=== PATIENT | female | born 1960 | race Caucasian/White ===

== ENCOUNTER 2016-07-13 02:56 | Inpatient (IN) | payer OTHER ==
[~2016-07-13] VITALS: Ht 160 cm; Wt 94.3 kg
[~2016-07-13 02:56] MED LIST: AZOR 10-20 MG1 EACH PO; NASONEX17 GM NAS; NATURE-THROID32.5 MG PO; RESTASIS1 EACH OPH
--- NOTE | 2016-07-13 13:51 | Admission Core Measures ---
Admission Meds I reviewed the following Meds: Current Medications Sig/Shavonne Start time Last Medication Dose Stop Time Status Admin Clindamycin 600 MG ONCE 07/13 NR (Cleocin) 07/13 2358 Dextrose/Water 50 ML (D5W) Dexamethasone 10 MG ONCE 07/13 NR (Decadron) 07/13 2358 Gentamicin Sulfate 80 MG ONCE 07/13 NR (Gentamicin) 07/13 2358 Dextrose/Water 100 ML (D5W) Heparin Sodium 5,000 UNIT ONCE 07/13 NR (Porcine) 07/13 2358 Acute Coronary Syndrome Inclusion Criteria ACS Diagnosis No Inpatient Core Measures LDL Reminder: If No, please order W/I first 24hr of stay Congestive Heart Failure Inclusion Criteria CHF Diagnosis No Cerebrovascular accident Inclusion Criteria CVA/TIA Diagnosis No Inpatient Core Measures Bedside Swallow Eval Reminder: If BSE failed, place ST order Antithrombotic Reminder: Order Antithrombotic Medication by end of day 2 Antithrombotic Reminder: Document Reason Antithrombotic Not ordered by end of day 2 AFIB/Flutter Reminder: If Present, add to problem list AFIB/Flutter Reminder: Order Anticoag Medication for pts with AFIB/Flutter Atherosclerosis Reminder: If Present, add to problem list LDL Reminder: If No, please order W/I first 24hr of stay PT Order Reminder: If No, please order Venous thromboembolism Inpatient Core Measures VTE Risk Factors: Age > 40, Obesity, Surgery VTE Prophylaxis Ordered Inpt Mech & Pharm No Mech VTE prophylaxis d/t No contraindications No VTE Pharm Prophylaxis d/t No contraindications Inclusion Criteria - Per Current guidelines, there needs to be overlap - treatment for the first 5 days of Warfarin therapy. - Parenteral Anticoagulation (IV or SC) needs to be - given along with Warfarin therapy. VTE Diagnosis No VTE Type NONE VTE Confirmed by (Test) NONE Problem List As ranked by this Provider includes Assessment & Plan 1. Morbid obesity 2. Hypothyroid 3. Hypertension 4. S/P laparoscopic sleeve gastrectomy HOME MEDS Home Med List Amlodipine Bes/Olmesartan Med (Jl 10-20 MG Tablet) 10 MG-20 MG TABLET 1 TAB PO QPM BP (Reported) Cyclosporine (Restasis) 0.05 % DROPERETTE 1 GTT OPH AD EYE(S) (Reported) Mometasone Furoate (Nasonex) 50 MCG SPRAY.PUMP 1-2 SPRAY CRISTI AD PRN ALLERGIES (Reported) Thyroid,Pork (Nature-Throid) (Unknown Strength) TABLET 2.25 GR PO DAILY THYROID (Reported)
--- NOTE | 2016-07-13 14:04 | Patient Discharge Instructions ---
Discharge Instructions General Discharge Information You were seen/treated for: morbid obesity, hx hypertension You had these procedures: laparoscopic sleeve gastrectomy (07/13/16) Watch for these problems: fever>101.3, increased pain, redness/swelling/drainage, shortness of breath, chest pain, dizziness No bath, but you may shower: Yes Other wound care: ok to shower. remove outer dressings, but leave white steri strips in place. expect drainage from the drain site, which you may place dry guaze over daily until it's no longer draining. Diet Continue normal diet: No Recommended Diet: Bariatric Additional DIET Information: weekly bariatric stage diet advancements as directed, as tolerated Activity Full Activity/No Limits: No Activity Self Limited: Yes Pounds, do NOT lift more than: 10 Other activity limits: no heavy lifting. no strenuous activity. ambulate frequently. Acute Coronary Syndrome Inclusion Criteria At DC or during hospital stay patient has or had the following: ACS DIAGNOSIS No Discharge Core Measures Meds if any: Prescribed or Continued at Discharge Meds if any: NOT Prescribed or Continued at Discharge Congestive Heart Failure Inclusion Criteria At DC or during hospital stay patient has or had the following: CHF DIAGNOSIS No Discharge Core Measures Meds if any: Prescribed or Continued at Discharge Meds if any: NOT Prescribed or Continued at Discharge Cerebrovascular accident Inclusion Criteria At DC or during hospital stay patient has or had the following: CVA/TIA Diagnosis No Discharge Core Measures Meds if any: Prescribed or Continued at Discharge Meds if any: NOT Prescribed or Continued at Discharge Venous thromboembolism Inclusion Criteria VTE Diagnosis No VTE Type NONE VTE Confirmed by (Test) NONE Discharge Core Measures - Per Current guidelines, there needs to be overlap - treatment for the first 5 days of Warfarin therapy. - If discharged on Warfarin prior to 5 days of - overlap therapy, the patient will need to be - assessed for post discharge needs including - *Post discharge parental anticoagulation - *Warfarin and/or parental anticoagulation education - *Follow up date to check INR post discharge At least 5 days overlap therapy as Inpatient No Meds if any: Prescribed or Continued at Discharge Note: Overlap Therapy is Warfarin and Anticoagulant Meds if any: NOT Prescribed or Continued at Discharge
[2016-07-13] MEDS ORDERED: PROTONIX40 M3 PO (14:06)
[2016-07-13] MEDS ORDERED: HYCET 7.5 MG-3473 ML PO (14:07)
--- NOTE | 2016-07-13 14:13 | Surg Short-stay <48hrs Dis Sum ---
Visit Information Visit Dates Admission Date: 07/13/16 Discharge Date: 07/15/16 Surgical Short Stay DC Summary Admission Diagnosis: morbid obesity, hx hypertension Final Diagnosis: morbid obesity, hx hypertension s/p lap sleeve gastrectomy (07/13/16) allergic reaction ?dilaudid Procedure(s): Laparoscopic sleeve gastrectomy (07/13/16) Summary/Significant Findings: Electively scheduled laparoscopic sleeve gastrectomy (07/13/16) by Dr.Neil Vidal. Upper gi study done post-op day#1 to rule out leak. Stage 1 bariatric diet started after upper gi study reviewed. She had an allergic reaction POD#1 evening, for which she was transferred to telemetry for monitoring after receiving epinephrine. Although she had multiple doses of dilaudid prior to her developing allergic symptoms (itching, rash, mild dyspnea), it was felt this medication was the most likely culprit, and therefore it was stopped. She was monitored on telemetry overnight, and her symptomst resolved after recieving epinephrine and solumedrol. She was discharged with hycet elixir, since she reports she has taken vicodin in the past without a problem. The PATRICIA drain removed prior to discharge home. Condition at Discharge: stable Discharge Disposition: home or self care Discharge instructions provided to patient/family: Yes Post discharge follow-up plan: follow up with Dr.Neil Vidal within one week continue weekly bariatric stage diet advancements as directed, as tolerated
--- NOTE | 2016-07-13 17:39 | Operative Report ---
Operative/Inv Procedure Report Surgery Date: 07/13/16 Name of Procedure: Laparoscopic Sleeve gastrectomy Pre-Operative Diagnosis: Severe morbid obesity BMI of 38 hypertension and osteoarthritis Post-Operative Diagnosis: Severe morbid obesity EOMI 38 hypertension and osteoarthritis Estimated Blood Loss: less than 50ml Surgeon/Casino Controller: Surgeon is Maurice Chambers in first Asst. Daryl Wick MD,MAURICE Couch Anesthesia: general endotracheal tube Implants: No implants Drains: A PATRICIA drain placed over the staple line and brought at the right upper quadrant Specimens: The stomach Complications: No complications Condition: Stable Operative Indication: This is a 36-year-old female with hypertension osteoarthritis and severe morbid obesity under one a workup and evaluation for sleeve gastrectomy IV now explained the risks and potential complications of the procedure including bleeding infection deep venous thrombosis and pulmonary embolism injury to the esophagus stomach and small intestine among other potential complications Operative/Procedure Note Note: The patient was brought into the operating room and placed on the operating room table in the supine position. The administered duration and prepping and draping the patient in the sterile fashion and incision was made below the umbilicus vertically and down to the fascia. There was a small umbilical hernia which was widened with the use of the electrocautery. A 15 mm blunt port was inserted into the abdominal cavity. At this time there were no adhesions so 5 mm port was placed in the right upper quadrant one in the left upper quadrant a 12 mm port in the right midabdomen and a 12 mm port care home between the xiphoid and the umbilicus. A 5 mm incision was made subxiphoid Pj liver retractor was inserted and the liver was elevated. The gastrocolic ligament was taken down with the LigaSure device and extending all the way up to the angle of His along the left crura of the diaphragm. The NG tube was removed. 38 Bahamian bougie was inserted into the stomach. Once stapling with a 60 cm black cartridge with the seam guard was used. A second black cartridge with no seam guard and then 3 purple cartridges with no seam guard were then used to staple the stomach along the bougie completely the stomach. Stomach was oversewn and inverted with a 20V lock suture. After this performed 2 passes of the suture were removed and then there was a little bit of bleeding on the underside of the stomach which was sewn with a figure of 8 2-0 silk suture. Was placed in a laparoscopic bag and retrieved through the umbilicus. The count 4 x 4's was correct. PATRICIA drain was placed over the staple line and brought at the right upper quadrant. The ports removed under direct vision the gas removed from the abdomen and the Valsalva maneuver was performed. The fascia was closed with 3 interrupted 0 Vicryl sutures. JPs Luc sewn in with a 2-0 nylon. Skin was closed with 4-0 Monocryl. Steri-Strips as replaced the wound site a sterile dressing was placed on the wound. The patient out procedure was brought to recovery room in stable condition end of dictation o'clock M.D.
--- NOTE | 2016-07-13 18:19 | RADIOLOGY REPORT ---
EXAMINATION:\H\ \N\XR CHEST CLINICAL INFORMATION: Post operative hypoxia. COMPARISON: Chest x-ray 07/08/2016. TECHNIQUE: Single AP view of the chest was obtained. FINDINGS: The lungs are hypoinflated, but otherwise clear without focal airspace consolidation. No pleural effusions or pneumothoraces are identified. Cardiomediastinal contours are within normal limits. Soft tissues are unremarkable. No acute osseous abnormality is identified. IMPRESSION: Pulmonary hypoinflation. Otherwise, no acute pulmonary process.
[2016-07-13 19:00] VITALS: BP 110/68
--- NOTE | 2016-07-13 20:18 | PN- Bariatrics ---
Subjective Subjective: POC S/P LAP SLEEVE GASTRECTOMY SOB POST OP, CXR-UNREMARKABLE FOR ACTIVE DISEASE CURRENTLY DENIES CP, SOB, SOME MILD TRANSIENT NAUSEA Objective Vital Signs and I&Os Vital Signs Date Time Temp Pulse Resp B/P Pulse O2 O2 Flow FiO2 Ox Delivery Rate 07/13 1899 97.4 83 18 110/68 94 Nasal 2.0L Cannula 07/13 1899 94 Nasal 2.0L Cannula Physical Exam: CV: RRR LUNGS: CLEAR ABD: SOFT, DRSGS DRY HYPOACTIVE BS, NO GUARDING TO PALP EXT: WARM, DISTAL CMS INTACT Current Medications: Current Medications Sig/Shavonne Start time Last Medication Dose Route Stop Time Status Admin Clindamycin 600 MG ONCE 07/13 DC Dextrose/Water 50 ML IV 07/13 2358 Dexamethasone 10 MG ONCE 07/13 DC IV 07/13 235 Dextrose/Sodium 1,000 ML Q8H 07/13 1930 AC 07/13 Chloride IV 1947 Enoxaparin Sodium 40 MG DAILY 07/14 1000 AC SC Gentamicin Sulfate 80 MG ONCE 07/13 0000 DC Dextrose/Water 100 ML IV 07/13 2359 Heparin Sodium 5,000 UNIT Q8 07/13 2200 AC (Porcine) SC 07/13 220 Heparin Sodium 5,000 UNIT ONCE 07/13 0000 DC (Porcine) SC 07/13 2359 Hydromorphone HCl 1 MG Q4P PRN 07/13 193 AC IV Ketorolac 30 MG Q6P PRN 07/13 1930 AC Tromethamine IV Ondansetron HCl 4 MG Q6P PRN 07/13 1930 AC IV Pantoprazole Sodium 40 MG DAILY 07/14 1000 AC IV Simethicone 40 MG Q6P PRN 07/13 1930 AC PO Thyroid 2.25 GR DAILY 07/14 1000 AC PO Results Recent Imaging Studies: SERVICE DATE: 07/13/16 EXAM TYPE: RAD - XRY-CHEST XRAY, ONE VIEW ONLY EXAMINATION:\H\ \N\XR CHEST CLINICAL INFORMATION: Post operative hypoxia. COMPARISON: Chest x-ray 07/08/2016. TECHNIQUE: Single AP view of the chest was obtained. FINDINGS: The lungs are hypoinflated, but otherwise clear without focal airspace consolidation. No pleural effusions or pneumothoraces are identified. Cardiomediastinal contours are within normal limits. Soft tissues are unremarkable. No acute osseous abnormality is identified. IMPRESSION: Pulmonary hypoinflation. Otherwise, no acute pulmonary process. DICTATED BY: SANTOSH GUTHRIE MD DATE/TIME DICTATED:07/13/161814 ORNAMENTER:MEGGAN DATE/TIME TRANSCRIBED:07/13/161814 Assessment/Plan Assessment/Plan SURGICAL STABLE PLAN OOB/AMBULATE LOVENOX/HEP/ALPS FOR DVT PROPHYLAXIS NPO FRO UGI IN AM HOLD BP MEDS FOR NOW-WILL MONITOR Core Measures/Miscellaneous Venous Thromboembolism VTE Risk Factors: Age > 40, Obesity, Smoking VTE Contraindications: No Contraindications VTE Prophylaxis Ordered Inpt: Mech & Pharm VTE Diagnosis: No VTE Type: NONE VTE Confirmed by (Test): NONE Beta Carissa Is Beta Carissa a Home Med? No Antibiotics Is Patient on Antibiotics? Yes
[2016-07-14 00:44] VITALS: BP 126/70
--- NOTE | 2016-07-14 06:54 | PN- Bariatrics ---
Subjective Subjective: The patient seen this morning postoperatively day #1. She complaints of some mild left shoulder pain as well as celine-incisional pain which is under adequate control with current pain regiment. She denies any nausea and is eager to ambulate this morning. Objective Vital Signs and I&Os Vital Signs Date Time Temp Pulse Resp B/P Pulse O2 O2 Flow FiO2 Ox Delivery Rate 07/14 0044 98.9 97 20 126/70 92 Nasal 2.0L Cannula 07/13 1899 97.4 83 18 110/68 94 Nasal 2.0L Cannula 07/13 190 94 Nasal 2.0L Cannula Intake & Output 07/14 0807/14 0000 07/13 1600 07/13 0800 07/13 0000 07/12 1600 Intake Total 710 Output Total 1600 610 Balance -1600 100 Intake, IV 500 Intake, Oral 210 Output, 10 Drainage Output, Urine 1600 600 Patient 208 lb Weight Physical Exam: Gen.: Alert and obvious distress Skin: Warm and dry Abdomen: Soft, obese, nondistended, bowel sounds positive. Port sites are clean , dry, and intact without signs of infection. His PATRICIA 1 holding suction with serosanguineous drainage in the bulb. Extremities: Bilateral lower extremities warm without calf tenderness or significant edema. Assessment/Plan Assessment/Plan Assessment: 56-year-old female status post lap scopic sleeve gastrectomy postoperative day #1. The patient is progressing as expected, her pain is under adequate control, and she is without nausea. Plan: Decrease IV fluids Follow-up morning laboratory studies Upper GI this morning if it is okay the patient be restarted on stage I diet GI and DVT prophylaxis Out of bed ambulate Total respiratory care Keep PATRICIA is self suction and DC before discharge Core Measures/Miscellaneous Venous Thromboembolism VTE Risk Factors: Age > 40, Obesity, Smoking VTE Contraindications: No Contraindications VTE Prophylaxis Ordered Inpt: Mech & Pharm VTE Diagnosis: No VTE Type: NONE VTE Confirmed by (Test): NONE Beta Carissa Is Beta Carissa a Home Med? No Antibiotics Is Patient on Antibiotics? No
[2016-07-14 08:16] LABS: ABSOLUTE BASOPHIL COUNT 0 /CUMM (0.0-0.2); ABSOLUTE EOSINOPHIL COUNT 0 /CUMM (0.0-0.7); ABSOLUTE GRANULOCYTE CT 8.5 /CUMM (1.4-6.5); ABSOLUTE LYMPH COUNT 0.5 /CUMM (1.2-3.4); ABSOLUTE MONOCYTE COUNT 0.2 /CUMM (0.10-0.60); BASOPHIL % 0 % (0.0-2.0); EOSINOPHIL % 0 % (0-5); HEMATOCRIT 41.5 % (37-47); MEAN CORPUSCULAR HGB 28.9 PG (27.0-31.0); MEAN CORPUSCULAR HGB CONC 34.4 G/DL (33.0-37.0); MEAN CORPUSCULAR VOLUME 84.1 FL (81.0-99.0); MEAN PLATELET VOLUME 8.7 FL (7.4-10.4); PLATELET COUNT 292 /CUMM (130-400); RBC DISTRIBUTION WIDTH 13.9 % (11.5-14.5); RED BLOOD CELL CT 4.94 /CUMM (4.20-5.40); WHITE BLOOD CELL COUNT 9.2 /CUMM (4.8-10.8)
--- NOTE | 2016-07-14 08:50 | NUR ---
NURSING NOTE: PT LEFT FLOOR VIA STRETCHER WITH DISTRIBUTION FOR UPPER GI SERIES XRAY, PT AWAKE, A/OX3, ROOM AIR, IVF PER MD ORDER, NPO, TICKET TO RIDE COMPLETE, DENIES PAIN, AWAIT RETURN TO FLOOR.
[2016-07-14 08:54] VITALS: BP 124/72
--- NOTE | 2016-07-14 09:50 | RADIOLOGY REPORT ---
EXAMINATION: XR UPPER GI SERIES CLINICAL INFORMATION: 48-year-old female status post sleeve gastrectomy. COMPARISON: None. TECHNIQUE: Upper GI series performed with oral intake of 30 mL of Gastroview contrast material. Multiple spot fluoroscopy images of the upper abdomen were obtained. FLUOROSCOPY TIME: 35 seconds FINDINGS: There is a drainage catheter in the epigastric region. The stomach has the expected configuration after sleeve gastrectomy. No significant delay in passage of contrast material through the esophagus, into the stomach and proximal duodenum. The patient was moved into right and left decubitus positions, and there was no evidence of contrast leakage from the stomach. IMPRESSION: Status post sleeve gastrectomy. No evidence of gastric leakage of contrast.
[2016-07-14 10:09] LABS: GRANULOCYTE % 92.2 % (42.2-75.2)
[2016-07-14 15:55] VITALS: BP 102/68
--- NOTE | 2016-07-14 19:08 | Event Note ---
Event Note Event Note: I responded to Rapid Response called to [phone]. Subjective: Rapid response was called for the surgical patient who was apparently having an allergic reaction to Dilaudid injections. The patient had started having rash all over the body, with a subjective feeling of minimal difficulty breathing, associated with subjective feeling of thickening of her tongue. Rash was erythematous and pruritus and all over the body including face torso and extremities. Rash occurred after injection of Dilaudid. But she has received five doses of Dilaudid so far. Patient mentioned that she has had reactions to opoiates/Dilaudid on and off in the past, including a distress requiring intubation, epinephrine, Solu-Medrol, Benadryl in the emergency department as well. Objective: The patient was sitting by the side of the bed, her vital signs were blood pressure 180/84, heart rate 170 regular, respiratory rate 24, oxygen saturation 96% on room air, patient was alert oriented and cooperative and was complaining of symptoms mentioned above. She was able to speak in full sentences and give us the history about allergies as mentioned earlier. On examination, airway was patent, she did not have any wheezes/spasm upon auscultation over bilateral lung sawyer, there was no obvious swelling of lips or swelling of tongue or narrowing of the glottis. Rash was obvious wall over the body which seemed to be pruritus as well. Assessment and plan: 56-year-old female status post laparoscopic sleeve gastrectomy done earlier today, is having a severe allergic reaction to opioid medication given as an analgesic. After ABC was confirmed, the following interventions were ordered immediately: -IV Benadryl 50 mg stat -IM epinephrine 0.3 mg stat -Continuous cardiac monitoring -IV Solu-Medrol stat After above interventions, patient seemed to be improving with revised vitals as blood pressure 152/80, heart rate ranging from 78-151, respiration 22 not labored, oxygen saturation 96% on room air. Patient is still speaking in full sentences and was able to say that she feels less hot, the rashes are minimally decreased, but she still felt that her tongue is thickened and might have difficulty breathing. Thus, another dose of IM epinephrine 0.3 mg was given stat. Patient is temporarily being transferred to telemetry as a requirement to monitor cardiac rhytham and reate for 2-4 hours following epinephrine injection. Surgical PA also arrived on scene and was briefed about the situation and agreed on the plan. Opioid medications were discontinued. For pain management, IV acetaminophen has been planned. Patient cannot have NSAIDs because of recent surgery. Patient needs further monitoring as there is a small chance of having a late reaction as well. Medical team will consult and further advice, if requested/needed. Transfer of care signed off to surgical team.
--- NOTE | 2016-07-14 20:00 | NUR ---
1826 PT GIVEN 1 MG DILAUDID FOR PAIN CHARTED. 1849 PATIENT REPORTED FEELING "ITCHY" AND RASH WAS NOTED TO HER FACE AND CHEST. JOSE RUTHERFORD NOTIFIED. 25 MG OF IV BENADRYL GIVEN PER VERBAL ORDER. 1854 PATIENT REPORTED REBA SPREADING AND FEELING OF DISCOMFORT WHEN SWALLOWING. RAPID RESPONSE CALLED. BP 180/84, RR 24, 96% ON RA, TEMP 98.7, HR 170. GAS REGULATOR REPAIRER GUMARO AND RESIDENT GREER IN ROOM, JOSE REDD PRESENT WELL. ANOTHER 25 MG OF BENADRYL GIVEN ORDERED WELL SOLUMEROL, AND EPINEPHERINE WAS GIVEN IA PERSONAL INJURY PARALEGAL. PERSONAL INJURY PARALEGAL NOTE APPRECIATED. BENADRYL CHARTED ONE 50 MG ORDER AND NOTED 2 25 MG DOSES PER MD. PT TRANSFERRED TO [address] [place] [address], ACCOMPANIED BY PERSONAL INJURY PARALEGAL AND THE NURSING GAS OPERATIONS ANALYST.
[2016-07-14 20:11] VITALS: BP 120/66
--- NOTE | 2016-07-14 20:42 | NUR ---
RAPID RESPONSE NOTE: RR CALLED AT 1858 BY FLOOR [place] FOR PATIENT C/O THROAT CLOSING, DIFFICULTY SWALLOWING, HIVES, REDNESS TO UPPER CHEST, FACE, EARS, BACK & TRAVELING DOWN BILATERAL ARMS. PATIENT RECEIVED IV DILAUDID 1MG @ 1827 PER EMAR. SEE RAPID RESPONSE SHEET FOR INITIAL V/S. VISIBLE REDNESS NOTED UPON ARRIVAL TO ALL AREAS. PATIENT REPORTING THAT IT WAS DIFFICULT FOR HER TO SWALLOW, SHE FELT ITCHY ALL OVER HER BODY & THE 25MG IV BENADRYL GIVEN PRIOR TO RAPID RESPONSE HAD NO EFFECT. AN ADDITIONAL 25MG IV BENADRYL GIVEN PER DR CORBIN ORDER @ 190, WITH NO EFFECT. HR REMAINED 150S ON SENIOR GL ACCOUNTANT-SINUS TACHYCARDIA. BP 152/70. O2 SAT ON RA 93%. @1907-0.3MG IM EPINEPHRINE ADMINISTERED IN R VASTUS LATERALIS PER DR CORBIN ORDER. HR REMAINED 140S-150S ON MONITOR-SINUS TACHYCARDIA. PATIENT COMPLAINED THAT THROAT CONTINUED TO FEEL TIGHT & WAS HAVING DIFFICULTY SWALLOWING. REDNESS & HIVES REMAINED ON FACE, CHEST & BILATERAL ARMS. @191-0.3MG IM EPINEPHRINE ADMINISTERED IN L VASTUS LATERALIS PER DR CORIBN ORDER. HR 140S-SINUS TACHYCARDIA ON SENIOR GL ACCOUNTANT. @1920-125MG IV SOLUMEDROL ADMINISTERED PER DR CORBIN ORDER. HR SINUS TACHYCARDIA WITH RATE 120S. @192-REDNESS TO CHEST, FACE, EARS & ARMS RESOLVING. PATIENT STATES SHE JUST FEELS "ITCHY", BUT HER THROAT "FEELS BETTER & IT'S OK TO SWALLOW". SINUS TACHYCARDIA WITH HR 110S-115 ON SENIOR GL ACCOUNTANT. BP 108/60. 93% ON RA. DENIES RESPIRATORY DISTRESS, DENIES PAIN. PATIENT TO BE TRANSFERRED TO [address] [place] [address] SOON ROOM WAS READY. REPORT RECEIVED FROM VERNELL ROMEO. I REMAINED WITH PATIENT TO CONTINUE TO MONITOR HER CARDIAC & RESP STATUS & TO TRANSFER THE PATIENT ONCE ABLE. @1937-PATIENT'S HR INCREASING TO 130S-SINUS TACHYCARDIA, PATIENT COMPLAINED THAT SHE "FELT HIVES INCREASING TO HER CHEST & ARMS, AND FELT HOT & ITCHY". REDNESS WAS INCREASING TO PATIENT'S CHEST, FACE & ARMS. DR CORBIN NOTIFIED. @1940-0.3MG IM EPINEPHRINE ADMINISTERED PER ORDER IN R VASTUS LATERALIS. HR 120S ON SENIOR GL ACCOUNTANT-SINUS TACHYCARDIA. PATIENT TRANSFERRED BY THIS RN & SKIP(2N RN AGRICULTURAL ECONOMICS PROFESSOR) BY BED TO 185- BED 2. ALL BELONGINGS TRANSPORTED WITH PATIENT. BEDSIDE REPORT GIVEN TO CHANDU RN UPON ARRIVAL.
--- NOTE | 2016-07-14 20:45 | Cons- Medical ---
MIRIAN HUTCHINS 07/14/162044: General Information and HPI Consulting Request Date of Consult: 07/14/16 Requested By: MARIEL RIVERA,MAURICE Couch Reason for Consult: Anaphylaxis Source of Information: patient, old records Exam Limitations: no limitations History of Present Illness: This is 56-year-old female with past medical history of hypertension, hypothyroidism, on hormonal replacement therapy, patient known to have allergy to molds, grass, penicillin, cephalosporin, minocycline. Patient was hospitalized for elective gastric sleeve that was done yesterday. ""Rapid response was called for the surgical patient who was apparently having an allergic reaction to Dilaudid injections. The patient had started having rash all over the body, with a subjective feeling of minimal difficulty breathing, associated with subjective feeling of thickening of her tongue. Rash was erythematous and pruritus and all over the body including face torso and extremities. Rash occurred after injection of Dilaudid. But she has received five doses of Dilaudid so far. Patient mentioned that she has had reactions to opoiates/Dilaudid on and off in the past, including a distress requiring intubation, epinephrine, Solu-Medrol, Benadryl in the emergency department as well"". So patient received a total of 0.3 IM epinephrine, 125 IV Solu-Medrol, 50 IV Benadryl. Despite that during history obtained the patient stated that the itching improved but she still had some itchy area on her chest, and she thinks that she get a get another episode. Otherwise she stated that for now she is feeling much better. She states most of the symptoms improved. Patient reports remote history of anaphylactic shock to the cephalosporin that was 15-16 years ago, that is slightly different comparing with this episode at that time she had lip and tongue swelling and she stated that she was almost to be intubated, and at this time it was more quicker to start. Patient always carry EpiPen at home. She stated that she is taking meclizine 25 3 times daily as needed for seasonal allergy. Now patient deny any nausea, vomiting, abdominal pain, chest pain, difficulty breathing, change in bowel or urinary habits, headaches, dizziness, lightheaded, fever, chills. Allergies/Medications Current Medications: Current Medications Sig/Shavonne Start time Last Medication Dose Route Stop Time Status Admin Acetaminophen/ 15 ML Q4P PRN 07/14 1130 DC 07/14 Hydrocodone Bitart PO 1133 Cyclosporine 1 GTT 0600,2200 07/14 2200 AC 07/14 OPH 2240 Cyclosporine 1 GTT BID 07/13 2200 DC 07/14 OPH 0706 Dextrose/Sodium 1,000 ML Q13H 07/14 0715 AC 07/14 Chloride IV 1421 Dextrose/Sodium 1,000 ML Q8H 07/13 1930 DC 07/14 Chloride IV 0304 Diphenhydramine HCl 50 MG BID PRN 07/15 1000 AC PO Diphenhydramine HCl 50 MG ONCE ONE 07/14 2044 DC 07/14 IV 07/14 Diphenhydramine HCl 50 MG ONCE ONE 07/14 190 DC 07/14 IV 07/14 Enoxaparin Sodium 40 MG DAILY 07/14 1000 AC 07/14 SC 1109 Epinephrine 0.3 MG ONCE ONE 07/14 1944 DC 07/14 IM 07/14 Epinephrine 0.3 MG ONCE ONE 07/14 193 DC 07/14 IM 07/14 Epinephrine 0.3 MG ONCE ONE 07/14 1914 DC 07/14 IM 07/14 Famotidine 20 MG BID 07/15 1000 AC PO Famotidine 20 MG ONCE ONE 07/14 2014 DC 07/14 IV 07/14 Hydromorphone HCl 1 MG Q4P PRN 07/13 193 DC 07/14 IV 182 Ketorolac 30 MG Q6P PRN 07/13 1930 AC 07/14 Tromethamine IV 0934 Lorazepam 1 MG AT BEDTIME 07/130 07/13 IV 2239 Methylprednisolone 40 MG Q8 07/15 599 IV Methylprednisolone 125 MG ONCE ONE 07/14 191 DC 07/14 IV 07/14 Ondansetron HCl 4 MG Q6P PRN 07/13 1930 IV Pantoprazole Sodium 40 MG DAILY 07/14 1000 AC 07/14 IV 0933 Simethicone 40 MG Q6P PRN 07/13 1930 AC 07/14 PO 1311 Thyroid 2.25 GR DAILY@0600 07/15 0600 AC PO Thyroid 2.25 GR DAILY 07/14 1000 DC 07/14 PO 0706 Review of Systems Review of Systems Constitutional: Reports: see HPI. Cardiovascular: Reports: see HPI. Respiratory: Reports: see HPI. GI: Reports: see HPI. Genitourinary: Reports: see HPI. Past History Travel History Traveled to [place] past 21 day No Medical History Blood Transfusion Hx: No Neurological: NONE EENT: NONE Cardiovascular: hypertension Respiratory: NONE Gastrointestinal: NONE Hepatic: NONE Renal: NONE Musculoskeletal: NONE Psychiatric: anxiety Endocrine: hypothyroidism Blood Disorders: NONE Cancer(s): NONE RANGE ECOLOGIST/Reproductive: NONE Surgical History Surgical History: ABLATION OF FIBROIDS TONSILECTOMY SINUS SURGERY SKIN GRAFT TO FINGER Psychosocial History Where Do You Live? Home Smoking Status: Never Smoked Functional Ability ADLs Independent: dressing, eating, toileting, bathing. Ambulation: independent IADLs Independent: shopping, housework, finances, food prep, telephone, transportation , medication admin. Exam & Diagnostic Data Last 24 Hrs of Vital Signs/I&O Vital Signs Date Time Temp Pulse Resp B/P Pulse O2 O2 Flow FiO2 Ox Delivery Rate 07/14 2010 98.3 120 20 120/66 94 Room Air 07/14 1555 98.4 76 20 102/68 92 Room Air 07/14 1334 Room Air Room Air 07/14 0854 98.2 86 18 124/72 91 Nasal Cannula 07/14 0044 98.9 97 20 126/70 92 Nasal 2.0L Cannula 07/14 0000 92 Nasal 2.0L Cannula Intake & Output 07/14 1600 07/14 0800 07/14 0000 Intake Total 1050 1000 710 Output Total 665 1635 610 Balance 385 -635 100 Intake, IV 600 1000 500 Intake, Oral 450 0 210 Number 0 Bowel Movements Output, 15 35 10 Drainage Output, Urine 650 1600 600 Patient 208 lb Weight Physical Exam General Appearance: no apparent distress, alert, awake, comfortable, obese Head: atraumatic, normal appearance Eyes: Bilateral: PERRL, EOMI. Neck: supple Respiratory: normal breath sounds, chest non-tender, no respiratory distress, quiet respiration, lungs clear Cardiovascular: tachycardia Peripheral Pulses: 2+ radial (R), 2+ radial (L) Gastrointestinal: normal bowel sounds, soft, multiple laparoscopic incisions noted, clean Extremities: normal inspection, no edema Skin: rash, rash noted on the chest area, erythema Last 24 Hrs of Labs/Larry: Laboratory Tests 07/14/16 0635: Anion Gap 14, Estimated GFR > 60, BUN/Creatinine Ratio 10.0, Glucose 156 H, Magnesium 1.9, CBC w Diff NO MAN DIFF REQ, RBC 4.94, MCV 84.1, MCH 28.9, RDW 13.9, MPV 8.7, Gran % 92.2 H, Lymphocytes % 5.3 L, Monocytes % 2.5, Eosinophils % 0, Basophils % 0 L, Absolute Granulocytes 8.5 H, Absolute Lymphocytes 0.5 L, Absolute Monocytes 0.2, Absolute Eosinophils 0, Absolute Basophils 0, PUBS MCHC 34.4 Diagnostic Data EKG Results Sinus tachycardia 122, QTC 411, there is nonspecific EKG changes. Assessment/Plan Assessment/Plan This is 56-year-old female with past medical history of hypertension, hypothyroidism, on hormonal replacement therapy, patient known to have allergy to molds, grass, penicillin, cephalosporin, minocycline. Patient was hospitalized for elective gastric sleeve that was done yesterday. Was transferred to telemetry floor status post anaphylactic reaction. Problem list: -Anaphylactic reaction most likely due to Dilaudid -Abnormal EKG. -Status post gastric sleeve Plan: -Continue monitoring the patient on telemetry -We'll send troponin and CBC -The patient additional 50 mg of IV Benadryl -We'll give 1 dose of 20 mg of IV Pepcid -We'll start the patient on Benadryl 50 mg twice a day as needed starting from a.m. -Start the patient on IV Solu-Medrol 40 mg every 8 hours starting from a.m. -Start the patient on Pepcid 20 twice a day a.m. -Increase IV fluid hydration to 125 mL per hour -If the patient developed shortness of breath, stridor consider ICU transfer. -DVT prophylaxis all-time. Consult Acknowledgment - Thank you for your consult request. SANCHEZ RIVERA, [facility] 07/14/162047: General Information and HPI Allergies/Medications Allergies: Coded Allergies: Cephalosporins (Severe, anaphylaxis 07/08/16) hydromorphone (From DILAUDID) (Severe, DIFFICULTY BREATHING 07/15/16) Penicillins (Intermediate, rash 07/08/16) Assessment/Plan Consult Acknowledgment - Thank you for your consult request. Attending MD Review Statement Attending Statement Attending MD Statement: examined this patient, discuss w/resident/PA/SUBSTANCE ADDICTION COORDINATOR, agreed w/resident/PA/SUBSTANCE ADDICTION COORDINATOR Attending Assessment/Plan: 56 yo morbidly obese F with h/o HTN, OA, hypothyroidism, who is POD1 s/p laparoscopic sleeve gastrectomy (07/13/16) by Dr. Vidal developed an allergic reaction after receiving dilaudid. Patient was doing well post-operatively, around 7 pm on 07/14, rapid response was called for rash over face/ chest, facial flush and patient's subjective c/o difficulty swallowing (?throat closing ) and breathing. During the episode, patient received epi 0.3 mg X 3, benadryl 50 mg and solumedrol 125 mg. She was then transferred from to Telemetry for monitoring and medicine consult was requested by the primary team. Patient has allergies to mold, grass, penicillin (rash), cephalosporin (cefaclor ) and minocycline anaphylaxis. About 16 years ago, she had developed anaphylaxis to antibiotics (after a few doses) with tongue swelling but did not require intubation. Since, then she carries Epi pen with her. No further similar episodes have occurred until today. Post gastric procedure, patient was doing well. She did not receive any antibiotics (gentamicin/clindamycin ordered but not given). She received dilaudid at 6.30 pm, after which the petechial and pruritic rash developed over her face/ chest/ upper extremities, followed by difficulty swallowing and breathing. This was her 5th dose of dilaudid since admission. She has had Percocet in the past, and this caused her nausea/vomiting. Currently, patient feels symptoms have not resolved completely and may return. She denies chest pain, palpitations, lightheadedness, headache, nausea or vomiting. Meds: Jl, HRT (Divigel and progesterone cap), meclizine for allergies, nature- thyroid pill, nasonex spray. Vitals stable except for tachycardia to 110's. Exam: AAO, in no distress, able to speak in full sentences, not tachypneic or wheezing. No tongue or lip swelling noted. Breathing room air. Mild facial flush+, petechial rash noted to upper chest area and b/l arms and back that seems to be resolving. No involvement of mucosa. Abdomen is sore s/p procedure. Labs done earlier were normal. Repeat CBC shows leukocytosis and negative troponin. EKG: SR with nonspecific ST-T wave changes, no prior EKG to compare. 1. Anaphylaxis likely in the setting of Dilaudid. Please discontinue dilaudid and would advice against any further opiate use. Consider IV tylenol or toradol for pain. Dilaudid has been listed as an allergen on [employer] by me. Will continue IV solumedrol 40 Q8, pepcid 20 BID and benadryl 50 BID for now. Low threshold for ICU transfer for intubation. Please keep patient NPO, give IV fluids. Please recheck EKG and troponin in AM. Continue TRC nebs. 2. HTN. Please hold off on Jl (amlodipine-losartan). Monitor BP. 3. Leukocytosis likely reactive, in the setting of surgery and recent steroid use. 4. Status post gastrectomy. Plan per primary team. DVT ppx Lovenox. Full code. GREER MOTA 07/15/16 0824: General Information and HPI Allergies/Medications Home Med List: Amlodipine Bes/Olmesartan Med (Jl 10-20 MG Tablet) 10 MG-20 MG TABLET 1 TAB PO QPM BP (Reported) Cyclosporine (Restasis) 0.05 % DROPERETTE 1 GTT OPH AD EYE(S) (Reported) Lorazepam (Ativan) 0.5 MG TABLET 1 TAB PO AT BEDTIME PRN SLEEP TAKE DIRECTED FOR INSOMNIA UNTIL YOUR HRT IS RESUMED Mometasone Furoate (Nasonex) 50 MCG SPRAY.PUMP 1-2 SPRAY CRISTI AD PRN ALLERGIES (Reported) Thyroid,Pork (Nature-Throid) (Unknown Strength) TABLET 2.25 GR PO DAILY THYROID (Reported) Assessment/Plan Consult Acknowledgment - Thank you for your consult request.
[2016-07-14 23:50] LABS: ABSOLUTE BASOPHIL COUNT 0 /CUMM (0.0-0.2); ABSOLUTE EOSINOPHIL COUNT 0 /CUMM (0.0-0.7); ABSOLUTE GRANULOCYTE CT 17.3 /CUMM (1.4-6.5); ABSOLUTE LYMPH COUNT 0.5 /CUMM (1.2-3.4); ABSOLUTE MONOCYTE COUNT 0.3 /CUMM (0.10-0.60); BASOPHIL % 0.1 % (0.0-2.0); EOSINOPHIL % 0 % (0-5); GRANULOCYTE % 95.9 % (42.2-75.2); HEMATOCRIT 39.8 % (37-47); MEAN CORPUSCULAR HGB 28.5 PG (27.0-31.0); MEAN CORPUSCULAR HGB CONC 33.8 G/DL (33.0-37.0); MEAN CORPUSCULAR VOLUME 84.3 FL (81.0-99.0); MEAN PLATELET VOLUME 9.1 FL (7.4-10.4); PLATELET COUNT 309 /CUMM (130-400); RED BLOOD CELL CT 4.72 /CUMM (4.20-5.40)
[2016-07-14 23:59] LABS: WHITE BLOOD CELL COUNT 18.1 /CUMM (4.8-10.8)
[2016-07-15 00:25] VITALS: BP 110/70
--- NOTE | 2016-07-15 00:57 | NUR ---
AT 2330, PT REQUESTED TO HAVE STANDING ORDER FOR IV BENEDRYL IN CASE ANYTHING WERE TO HAPPEN AGAIN REGARDING ALLERGIC REACTION TO MEDICATION. MD HUTCHINS PAGED AND INFORMED ABOUT PATIENTS REQUEST. HIVES NOTED TO CHEST, EXTENDING TO NECK AND CHEEKS. LUNGS SOUNDS CLEAR, NO WHEEZING, SATS 93% ON RA. PT CONTINUES TO BE ANXIOUS AND WASN'T SATISFIED WITH THE MD'S ANSWER. THIS RN CALLED MD VASQUEZ AND HE CAME TO ASSESS THE PATIENT. MD ORDERED 25MG PO LIQUID BENEDRYL AND TOPICAL BENEDRYL. PT WAS SATISFIED WITH THIS APPROACH. IF PT CONTINUES TO HAVE ANY MORE DIFFICULTY WITH URTICARIA, IS WILLING TO PUT IN IV DOSE OF BENEDRYL. AT THIS MOMENT, PT IS SITTING IN BED COMFORTABLY, WITH NO COMPLAINTS OR DISTRESS. NO TONGUE/FACIAL EDEMA NOTED. RESP STATUS WNL. WILL CTM.
--- NOTE | 2016-07-15 07:10 | PN- Bariatrics ---
Subjective Subjective: No further events overnight since the rapid response / allergic reaction last evening. She was transferred to telemetry due to epinephrine given. She denies shortness of breath, dizziness, chest pain currently. Tolerating stage 1 bariatric diet. No nausea. She has been ambulating well. Voiding without difficulty. Passing flatus and +bms. She reports she has taken vicodin in the past without problems. She would like to restart her progesterone (hrt) if it's ok with , since she feels like she can't sleep without it. Objective Vital Signs and I&Os Vital Signs Date Time Temp Pulse Resp B/P Pulse O2 O2 Flow FiO2 Ox Delivery Rate 07/15 002 98.8 110 20 110/70 93 Room Air 07/14 2010 98.3 120 20 120/66 94 Room Air 07/14 1555 98.4 76 20 102/68 92 Room Air 07/14 1334 Room Air Room Air 07/14 0854 98.2 86 18 124/72 91 Nasal Cannula Intake & Output 07/15 0807/15 0000 07/14 1600 07/14 0807/14 0000 07/13 1600 Intake Total 1963 134 5081 1000 710 Output Total 920 992 421 0868 610 Balance 151 -166 385 -635 100 Intake, IV 1000 967 683 8670 500 Intake, Oral 71 60 450 0 210 Number 2 0 Bowel Movements Output, 20 25 15 35 10 Drainage Output, Other 1 Output, Urine 900 504 320 8086 600 Patient 208 lb Weight Physical Exam: General - alert & oriented x 3. comfortable. no acute distress. Lungs - clear bilaterally. no w/r/r. Cardiac - s1s2. mildly tachy. Abdomen - soft. PATRICIA drain removed. dressings c/d/i. Extremities - warm bilaterally. no c/c/e. calves soft and nontender b/l. Assessment/Plan Assessment/Plan This 56-year-old female POD#2 s/p lap sleeve gastrectomy, who experience allergic reaction ?secondary to dilaudid last night s/p rapid response and transfer to telemetry s/p given epinephrine and solumedrol tolerating stage 1 bariatric diet. d/c iv fluids f/u am labs PATRICIA drain removed solumedrol ordered by medical team as 40 mg iv q8. ?taper hycet prn pain control pepcid iv - gi ppx lovenox - dvt ppx oob/ambulating well d/c planning for today ?ok to restart progesterone (hrt) will d/w Core Measures/Miscellaneous Venous Thromboembolism VTE Risk Factors: Age > 40, Obesity, Smoking VTE Contraindications: No Contraindications VTE Prophylaxis Ordered Inpt: [facility] VTE Diagnosis: No VTE Type: NONE VTE Confirmed by (Test): NONE Beta Carissa Is Beta Carissa a Home Med? No Antibiotics Is Patient on Antibiotics? No
[2016-07-15] MEDS ORDERED: ATIVAN0.5 M1 PO (07:47)
[2016-07-15 07:59] VITALS: BP 140/92
--- NOTE | 2016-07-15 08:14 | PN- Medicine Consult ---
GREER MOTA 07/15/16 0814: Assessment/Plan Assessment/Plan Assessment: This is 56-year-old female with past medical history of hypertension, hypothyroidism, on hormonal replacement therapy, patient known to have allergy to molds, grass, penicillin, cephalosporin, minocycline. Patient was hospitalized for elective gastric sleeve that was done yesterday. ""Rapid response was called for the surgical patient who was apparently having an allergic reaction to Dilaudid injections. The patient had started having rash all over the body, with a subjective feeling of minimal difficulty breathing, associated with subjective feeling of thickening of her tongue. Rash was erythematous and pruritus and all over the body including face torso and extremities. Plan: -The patient was given 0.3 x 3 shots of IM epinephrine, stress does of steroids and 2 x 50 mg of benedryl with some improvement in her symptoms. She was transfered to telemetry floor for cardic monitor post epinephrine shot. - Patient was then started on Benadryl 50 mg BID, Pepcid 20 mg BID and solumedrol q 8. Subjective Subjective: Patient seen and examined. No hives or rash appreciated. Subjective feeling of closing throat improved. Patient will be discharged today per surgical team. Review of Systems Constitutional: Reports: see HPI. Objective Last 24 Hrs of Vital Signs/I&O as per chart Physical Exam General Appearance: well developed/nourished, no apparent distress, alert, awake Head: atraumatic Neck: normal inspection, supple Cardiovascular: regular rate/rhythm Respiratory: normal breath sounds, chest non-tender Current Medications: as per chart Results Last 24 Hrs Lab/Larry Results: as per chart MICHELLE RIVERA,[facility] 07/15/16 1152: Attending MD Review Statement Attending Sign Off Attending Cosign Statement: I have: examined this patient, reviewed [facility] EMR data, personally reviewd images, discussd w/resident/PA/WATER GAS OPERATOR, discussed mgmt plan w/eliazar, discussed mgmt plan w/pt, agreed w/resident/PA/WATER GAS OPERATOR, amended to note. Other Findings: Patient seen and examined, feeling much better. Last night she had a reaction to Dilaudid she developed anaphylaxis. She had rash all over her body as well as difficulty swallowing with choking sensation. Currently all symptoms have resolved. Patient has received some steroids as well as Benadryl. She is started on clear liq diet. Vital Signs Date Time Temp Pulse Resp B/P Pulse O2 O2 Flow FiO2 Ox Delivery Rate 07/15 0759 98.6 80 18 140/92 94 Room Air 07/15 0025 98.8 110 20 110/70 93 Room Air 07/14 2010 98.3 120 20 120/66 94 Room Air 07/14 1555 98.4 76 20 102/68 92 Room Air 07/14 1334 Room Air Room Air on exam; aox3, nad. cv; s1,s2, rrr. resp; clear. abd; soft, nt, bs+ ext; no edema. Laboratory Tests 07/15 07/14 0740 2315 Chemistry Troponin I (< 0.11 ng/ml) < 0.01 < 0.01 Hematology CBC w Diff NO MAN DIFF REQ MAN DIFF ORDERED WBC (4.8 - 10.8 /CUMM) 12.6 H 18.1 H RBC (4.20 - 5.40 /CUMM) 4.33 4.72 Hgb (12.0 - 16.0 G/DL) 12.4 13.4 Hct (37 - 47 %) 36.7 L 39.8 MCV (81.0 - 99.0 FL) 84.7 84.3 MCH (27.0 - 31.0 PG) 28.6 28.5 RDW (11.5 - 14.5 %) 14.1 14.0 Plt Count (130 - 400 /CUMM) 256 309 MPV (7.4 - 10.4 FL) 8.9 9.1 Gran % (42.2 - 75.2 %) 89.6 H 95.9 H Lymphocytes % (20.5 - 51.1 %) 5.0 L 2.5 L Monocytes % (1.7 - 9.3 %) 5.3 1.5 L Eosinophils % (0 - 5 %) 0.1 0 Basophils % (0.0 - 2.0 %) 0 L 0.1 Absolute Granulocytes (1.4 - 6.5 /CUMM) 11.2 H 17.3 H Segmented Neutrophils (42.2 - 75.2 %) 92 H Absolute Lymphocytes (1.2 - 3.4 /CUMM) 0.6 L 0.5 L Lymphocytes (20.5 - 51.1 %) 6 L Monocytes (1.7 - 9.3 %) 2 Absolute Monocytes (0.10 - 0.60 /CUMM) 0.7 H 0.3 Absolute Eosinophils (0.0 - 0.7 /CUMM) 0 0 Absolute Basophils (0.0 - 0.2 /CUMM) 0 0 Platelet Estimate (ADEQUATE) ADEQUATE Normochromic RBCs VERIFIED Ovalocytes FEW PUBS MCHC (33.0 - 37.0 G/DL) 33.8 33.8 Other Body Source Fld Total RBCs Counted (%) 100 Assessment and recommendations. 56 y/o F with pmh sig for HTN, OA, hypothyroidism postop day #2 from Laparoscopic Sleeve gastrectomy with history of morbid obesity, hypertension and also arthritis. She had an anaphylactic reaction secondary to Dilaudid last night and received Solu-Medrol, antihistamine as well as H2 salas. Currently doing well. Claims that she has this problem of anaphylaxis in the past. She keeps Medrol Dosepak and EpiPen with her all the time. She wanted to get the prescription for Medrol Dosepak. Her symptoms have resolved completely. I do not think that she needs any steroid taper currently. She will definitely require prescription for Medrol Dosepak to keep with her. He is also given a prescription for EpiPen. From medical standpoint she can be started back on her UNIQUE and this is contraindicated from postsurgical standpoint. I will leave this up to the surgeon but from anaphylactic standpoint I do not think that she had a reaction to her blood pressure medicine. I have notified this to cashier receptionist surgical PA. I paged pager #[phone] for the surgical PA who had discharged her and awaiting a callback to discuss about her BP meds.
[2016-07-15 08:30] LABS: ABSOLUTE BASOPHIL COUNT 0 /CUMM (0.0-0.2); ABSOLUTE EOSINOPHIL COUNT 0 /CUMM (0.0-0.7); ABSOLUTE GRANULOCYTE CT 11.2 /CUMM (1.4-6.5); ABSOLUTE LYMPH COUNT 0.6 /CUMM (1.2-3.4); ABSOLUTE MONOCYTE COUNT 0.7 /CUMM (0.10-0.60); BASOPHIL % 0 % (0.0-2.0); EOSINOPHIL % 0.1 % (0-5); GRANULOCYTE % 89.6 % (42.2-75.2); HEMATOCRIT 36.7 % (37-47); MEAN CORPUSCULAR HGB 28.6 PG (27.0-31.0); MEAN CORPUSCULAR HGB CONC 33.8 G/DL (33.0-37.0); MEAN CORPUSCULAR VOLUME 84.7 FL (81.0-99.0); MEAN PLATELET VOLUME 8.9 FL (7.4-10.4); PLATELET COUNT 256 /CUMM (130-400); RBC DISTRIBUTION WIDTH 14.1 % (11.5-14.5); RED BLOOD CELL CT 4.33 /CUMM (4.20-5.40)
[2016-07-15 09:30] LABS: WHITE BLOOD CELL COUNT 12.6 /CUMM (4.8-10.8)
[2016-07-15] MEDS ORDERED: MEDROL4 M2 PO (10:37)
[2016-07-15] MEDS ORDERED: EPIPEN 2-P0.3 MG/0.3 IM (10:37)
== END 2016-07-15 11:30 | DRG 403 ==
LOC: SDA 02:56 → 1NO 02:56 → 2NB 02:56 → 1NO 07-14 19:46
PROVIDERS: Internal Medicine Hematology & Oncology; Physician Assistant; Student in an Organized Health Care Education/Training Program; ADMIT Surgery
PROC: 0DB64Z3 Excision of Stomach, Percutaneous Endoscopic Approach, Vertical (ICD-10-PCS; principal; 2016-07-13)
DX: E66.01 Morbid (severe) obesity due to excess calories (principal); Z68.38 Body mass index [BMI] 38.0-38.9, adult; M19.90 Unspecified osteoarthritis, unspecified site; L27.0 Generalized skin eruption due to drugs and medicaments taken internally; T40.2X5A Adverse effect of other opioids, initial encounter; Y92.230 Patient room in hospital as the place of occurrence of the external cause; T88.6XXA Anaphylactic reaction due to adverse effect of correct drug or medicament properly administered, initial encounter; E03.9 Hypothyroidism, unspecified; I10 Essential (primary) hypertension; J45.909 Unspecified asthma, uncomplicated
CPT/HCPCS: 1NSP; 2NBSP; 36415; 74240; 81025; 82436; 88307; 93005; 93010; 94799; J0131; J0171; J1071; J1100; J1170; J1200; J1580; J1644; J1650; J1885; J2405; J2920; J2930; J7042